=== PATIENT | male | born 1980 | race Two or more races ===

== ENCOUNTER 2022-05-09 17:54 | Inpatient (IN) | payer MEDICAID, OTHER ==
[~2022-05-09] VITALS: Ht 182.9 cm; Wt 87.1 kg
[2022-05-09] MEDS ORDERED: SODIUM CHLORIDE 0.9% 1,000 ML IV ONE ×2 (18:45→23:45)
[2022-05-09 19:24] LABS: EOSINOPHILS % 2.8 % (0.0-5.0); HEMATOCRIT. 38.8 % (42.0-52.0); HEMOGLOBIN. 13.4 g/dL (14.0-18.0); LYMPHOCYTES % 22.5 % (20.0-50.0); MEAN CORPUSCULAR HEMOGLOBIN 29.5 pg (28.0-32.0); MEAN CORPUSCULAR VOLUME 85.8 fL (80.0-94.0); MEAN PLATELET VOLUME 9.5 fl (7.4-10.4); MONOCYTES % 14.9 % (2.0-8.0); NEUTROPHILS % 58.8 % (40.0-76.0); PLATELET 221 x1000/uL (130-400); RED BLOOD CELL COUNT 4.53 mill/uL (4.7-6.1); RED CELL DISTRIBUTION WIDTH 14.6 % (11.6-14.6)
[2022-05-09 19:28] LABS: CHLORIDE 104 mEq/L (98-107)
[2022-05-09 19:30] LABS: PROTHROMBIN TIME 10.9 sec (9.6-11.0)
[2022-05-09 19:48] LABS: CREATINE KINASE 1480 IU/L (39-308); ETHANOL BLOOD < 10 mg/dL
[2022-05-10] MEDS ORDERED: MAGNESIUM/ALUMINUM HYDROXIDE/SIMETHICONE 30ML UDC PO PRN (01:30)
[2022-05-10] MEDS ORDERED: ACETAMINOPHEN 325MG TABLET PO PRN (01:30)
[2022-05-10] MEDS ORDERED: CLONIDINE 0.1MG TABLET PO PRN (01:30)
[2022-05-10] MEDS ORDERED: ZOLPIDEM TARTRATE 5MG TABLET PO PRN ×2 (01:30→15:45)
[2022-05-10] MEDS ORDERED: ONDANSETRON HCL 4MG/2ML INJ IV PRN (01:30)
[2022-05-10] MEDS ORDERED: DIPHENHYDRAMINE 50MG/ML VIAL IV PRN (01:30)
[2022-05-10] MEDS ORDERED: POTASSIUM CHLORIDE 20MEQ TABLET SR PO NR (01:30)
[2022-05-10] MEDS: SODIUM CHLORIDE 0.9% 1,000 ML IV SCH ×3 (02:24→21:30)
[2022-05-10 02:36] LABS: CLARITY URINE CLEAR (CLEAR); COLOR URINE DARK YELLOW (YELLOW); KETONES URINE TRACE (NEGATIVE); LEUKOCYTE ESTERASE URINE NEGATIVE (NEGATIVE); NITRITE URINE NEGATIVE (NEGATIVE); OCCULT BLOOD URINE NEGATIVE (NEGATIVE); PH URINE 5.5 (4.5-8.0); PROTEIN URINE 1+ (NEGATIVE); SPECIFIC GRAVITY URINE 1.035 (1.005-1.030)
[2022-05-10 02:55] LABS: *AMPHETAMINES SCREEN URINE PRESUMTIVE POSITIVE (NEGATIVE); *BARBITURATES SCREEN URINE NEGATIVE (NEGATIVE); *BENZODIAZEPINES SCREEN URINE NEGATIVE (NEGATIVE); *COCAINE SCREEN URINE NEGATIVE (NEGATIVE); CANNABINOID URINE SCREEN NEGATIVE (NEGATIVE); METHADONE URINE SCREEN NEGATIVE (NEGATIVE); OPIATES URINE SCREEN NEGATIVE (NEGATIVE); PHENCYCLIDINE URINE SCREEN NEGATIVE (NEGATIVE)
[2022-05-10] MEDS: NICOTINE 7MG PATCH TD SCH (13:35)
[2022-05-10] MEDS ORDERED: MAGNESIUM 1 G PREMIX 100 ML IV NR (16:30)
[2022-05-10 20:00] VITALS: BP 117/62
[2022-05-10] MEDS: ACETAMINOPHEN 325MG TABLET PO PRN ×2 (20:48→21:16)
[2022-05-10] MEDS: LORAZEPAM 2MG/ML CPJ IV PRN (20:48)
[2022-05-10] MEDS: GABAPENTIN 400MG CAPSULE PO SCH (21:16)
[2022-05-11] VITALS: BP 115/62
[2022-05-11 04:00] VITALS: BP 113/65
[2022-05-11] MEDS: GABAPENTIN 400MG CAPSULE PO SCH ×2 (06:00→15:13)
[2022-05-11 07:43] LABS: CREATINE KINASE 403 IU/L (39-308)
[2022-05-11] MEDS: NICOTINE 7MG PATCH TD SCH (08:53)
[2022-05-11] MEDS: ACETAMINOPHEN 325MG TABLET PO PRN ×2 (09:03→15:13)
[2022-05-11] MEDS: LORAZEPAM 2MG/ML CPJ IV PRN ×2 (09:04→15:14)
[2022-05-11 09:10] LABS: ABSOLUTE EOSINOPHILS 0.1 x10E3/uL (0.0-0.4); ABSOLUTE LYMPHOCYTES 0.9 x10E3/uL (0.7-3.1); ABSOLUTE MONOCYTES 0.5 x10E3/uL (0.1-0.9); ABSOLUTE NEUTROPHILS 2.4 x10E3/uL (1.4-7.0); BASOPHILS 1 % (Not Estab.); HEMATOCRIT 36.2 % (37.5-51.0); HEMOGLOBIN 12.1 g/dL (13.0-17.7); IMMATURE GRANULOCYTES 0 % (Not Estab.); LYMPHOCYTES 23 % (Not Estab.); MEAN CORPUSCULAR HEMOGLOBIN 29.9 pg (26.6-33.0); MEAN CORPUSCULAR HGB CONC. 33.4 g/dL (31.5-35.7); MEAN CORPUSCULAR VOLUME 89 fL (79-97); MONOCYTES 13 % (Not Estab.); NEUTROPHILS 60 % (Not Estab.); PLATELETS 196 x10E3/uL (150-450); RBC 4.05 x10E6/uL (4.14-5.80); RED CELL DISTRIBUTION WIDTH 14.1 % (11.6-15.4); WBC 3.9 x10E3/uL (3.4-10.8)
[2022-05-11 10:11] LABS: % CD 3 POS. LYMPHOCYTES 66.7 % (57.5-86.2); % CD 4 POS. LYMPHOCYTES 14.5 % (30.8-58.5); % CD 8 POS. LYMPH 48.7 % (12.0-35.5); ABSOLUTE CD 3 600 /uL (622-2402); ABSOLUTE CD 4 HELPER 131 /uL (359-1519); ABSOLUTE CD 8 SUPPRESSOR 438 /uL (109-897)
[2022-05-11 15:43] VITALS: BP 111/71
[2022-05-11 15:46] VITALS: BP 111/71
[2022-05-11 19:12] VITALS: BP 123/79
== END 2022-05-11 19:25 | disposition home or self-care (01) | DRG 892 ==
LOC: ER 17:54 → MICUSO 05-10 04:09 → 6EST 05-10 04:20
PROVIDERS: ADMIT Internal Medicine; ATTEND Internal Medicine
DX: G92.8 Other toxic encephalopathy (principal); B20 Human immunodeficiency virus [HIV] disease; M62.82 Rhabdomyolysis; E87.6 Hypokalemia; F15.10 Other stimulant abuse, uncomplicated; Z59.00 Homelessness unspecified; Z72.0 Tobacco use; Z79.899 Other long term (current) drug therapy; Z85.820 Personal history of malignant melanoma of skin; Z88.0 Allergy status to penicillin; Z87.01 Personal history of pneumonia (recurrent)
CPT/HCPCS: 36415; 71045; 80051; 80053; 80305; 80307; 80320; 80329; 81003; 82550; 83735; 84443; 84484; 85025; 86359; 86360; 93005; 99285; J2060; J3475; J7030; G0480

== ENCOUNTER 2022-12-18 15:26 | Emergency (ER) | payer MEDICAID, OTHER ==
[~2022-12-18] VITALS: Ht 182.9 cm; Wt 80.0 kg
[2022-12-18 16:32] LABS: BASOPHILS % 0.9 % (0.0-2.0); EOSINOPHILS % 2.5 % (0.0-5.0); HEMOGLOBIN. 12.6 g/dL (14.0-18.0); LYMPHOCYTES % 18.4 % (20.0-50.0); MEAN CORPUSCULAR VOLUME 85.6 fL (80.0-94.0); MEAN PLATELET VOLUME 9.7 fl (7.4-10.4); MONOCYTES % 14.5 % (2.0-8.0); NEUTROPHILS % 63.7 % (40.0-76.0); PLATELET 181 x1000/uL (130-400); RED BLOOD CELL COUNT 4.21 mill/uL (4.7-6.1); RED CELL DISTRIBUTION WIDTH 14.1 % (11.6-14.6)
[2022-12-18 16:33] LABS: INR 0.9; PROTHROMBIN TIME 10.1 sec (9.6-11.0)
[2022-12-18 16:43] LABS: CHLORIDE 108 mEq/L (98-107)
[2022-12-18] MEDS ORDERED: KETOROLAC 30MG/ML VIAL IM ONE (19:15)
[2022-12-18 20:00] VITALS: BP 132/87
[2022-12-18 20:56] LABS: CLARITY URINE CLEAR (CLEAR); COLOR URINE YELLOW (YELLOW); KETONES URINE NEGATIVE (NEGATIVE); LEUKOCYTE ESTERASE URINE NEGATIVE (NEGATIVE); NITRITE URINE NEGATIVE (NEGATIVE); OCCULT BLOOD URINE NEGATIVE (NEGATIVE); PROTEIN URINE NEGATIVE (NEGATIVE); SPECIFIC GRAVITY URINE 1.016 (1.005-1.030)
== END 2022-12-18 20:32 | disposition home or self-care (01) ==
LOC: ER 15:26
DX: R51.9 Headache, unspecified (principal); R21 Rash and other nonspecific skin eruption; F19.90 Other psychoactive substance use, unspecified, uncomplicated; Z88.0 Allergy status to penicillin
CPT/HCPCS: 36415; 70450; 80053; 81003; 83690; 84484; 85025; 85610; 96372; 99285; J1885

== ENCOUNTER 2023-02-02 04:58 | Emergency (ER) | payer MEDICAID, OTHER ==
[~2023-02-02] VITALS: Ht 180.3 cm; Wt 78.0 kg
[2023-02-02 05:04] VITALS: O2SAT 96
[2023-02-02] MEDS ORDERED: ACETAMINOPHEN 325MG TABLET PO ONE (05:45)
[2023-02-02] MEDS ORDERED: DIPHENHYDRAMINE 50MG/ML VIAL IV NR (05:45)
[2023-02-02] MEDS ORDERED: FAMOTIDINE 20MG/2ML VIAL IV NR (05:45)
[2023-02-02] MEDS ORDERED: SODIUM CHLORIDE 0.9% 1,000 ML IV ONE (05:45)
[2023-02-02 06:12] LABS: CHLORIDE 112 mEq/L (98-107)
[2023-02-02 06:16] LABS: HEMATOCRIT. 35.3 % (42.0-52.0); HEMOGLOBIN. 12.1 g/dL (14.0-18.0); MEAN CORPUSCULAR HEMOGLOBIN 29.3 pg (28.0-32.0); MEAN CORPUSCULAR VOLUME 85.4 fL (80.0-94.0); MEAN PLATELET VOLUME 9.9 fl (7.4-10.4); PLATELET 159 x1000/uL (130-400); RED BLOOD CELL COUNT 4.13 mill/uL (4.7-6.1); RED CELL DISTRIBUTION WIDTH 14.3 % (11.6-14.6)
[2023-02-02 06:19] LABS: CREATINE KINASE 890 IU/L (39-308)
[2023-02-02 07:07] LABS: PLATELET ESTIMATE NORMAL
[2023-02-02] MEDS ORDERED: DOXYCYCLINE HYCLATE 100MG CAPSULE PO ONE (07:30)
[2023-02-02] MEDS ORDERED: PREDNISONE 20MG TABLET PO ONE (07:30)
[2023-02-02] MEDS ORDERED: PRED5TAB48 MT (07:31)
[2023-02-02] MEDS ORDERED: DOXY100T28 MT (07:31)
[2023-02-02] MEDS ORDERED: ACET-2708 MT (07:31)
[2023-02-02 09:00] VITALS: BP 135/62; PULSE 92; RESP 18; TEMP 98.2
== END 2023-02-02 09:38 | disposition home or self-care (01) ==
LOC: ER 04:58
DX: L21.9 Seborrheic dermatitis, unspecified (principal); F17.200 Nicotine dependence, unspecified, uncomplicated; F12.10 Cannabis abuse, uncomplicated; F15.10 Other stimulant abuse, uncomplicated; F19.90 Other psychoactive substance use, unspecified, uncomplicated; Z00.00 Encounter for general adult medical examination without abnormal findings; Z91.148 Patient's other noncompliance with medication regimen for other reason; Z88.0 Allergy status to penicillin; Z98.890 Other specified postprocedural states; Z86.59 Personal history of other mental and behavioral disorders
CPT/HCPCS: 80053; 82550; 85025; 36415; 96361; 96374; 96375; 99284; J7512; J1200; J3490; J7030; Z7610 ×2

== ENCOUNTER 2023-08-28 15:42 | Emergency (ER) | payer MEDICAID, OTHER ==
[~2023-08-28] VITALS: Ht 175.3 cm; Wt 103.0 kg
[~2023-08-28 15:42] MED LIST: ACET-2708 MT; DOXY100T28 MT; PRED5TAB48 MT
[2023-08-28 15:48] VITALS: O2SAT 98
[2023-08-28] MEDS ORDERED: KETOROLAC 30MG/ML VIAL IV STA (15:53)
[2023-08-28] MEDS ORDERED: CEFTRIAXONE 1GM PREMIX 50 ML IV ONE (16:00)
[2023-08-28] MEDS ORDERED: SODIUM CHLORIDE 0.9% 1,000 ML IV ONE (16:00)
[2023-08-28 16:38] LABS: BASOPHILS % 0.2 % (0.0-2.0); EOSINOPHILS % 0.7 % (0.0-5.0); HEMATOCRIT. 32.5 % (42.0-52.0); MEAN CORPUSCULAR HEMOGLOBIN 27.8 pg (28.0-32.0); MEAN CORPUSCULAR VOLUME 81.7 fL (80.0-94.0); MEAN PLATELET VOLUME 8.1 fl (7.4-10.4); MONOCYTES % 7.8 % (2.0-8.0); NEUTROPHILS % 83.3 % (40.0-76.0); PLATELET 268 x1000/uL (130-400); RED BLOOD CELL COUNT 3.97 mill/uL (4.7-6.1); RED CELL DISTRIBUTION WIDTH 14.4 % (11.6-14.6); WHITE BLOOD COUNT 7.9 x1000/uL (4.5-11.0)
[2023-08-28 16:49] LABS: PROTHROMBIN TIME 10.8 sec (9.6-11.0)
[2023-08-28 16:56] LABS: ALANINE AMINOTRANSFERASE 17 IU/L (10-49); ALBUMIN 3.1 g/dL (3.2-4.8); ASPARTATE AMINOTRANSFERASE 21 IU/L (<34); BILIRUBIN TOTAL 0.3 mg/dL (0.1-1.0); CALCIUM 8.4 mg/dL (8.7-10.4); CARBON DIOXIDE 26 mEq/L (21-32); CHLORIDE 105 mEq/L (98-107); CREATINE KINASE 64 IU/L (46-171); CREATININE 0.8 mg/dL (0.6-1.3); GLUCOSE 81 mg/dL (70-105); POTASSIUM 4.1 mEq/L (3.5-5.1); PROTEIN TOTAL 9.2 g/dL (6.0-8.3); SODIUM 135 mEq/L (136-145); UREA NITROGEN BLOOD 19 mg/dL (9-23)
[2023-08-28 17:10] LABS: ETHANOL BLOOD < 10 mg/dL (<10); TROPONIN I HIGH SENSITIVITY < 4 ng/L (3.0-53)
[2023-08-28] MEDS ORDERED: NICOTINE 14MG PATCH TD ONE (19:15)
[2023-08-28 19:26] VITALS: TEMP 99.1
[2023-08-29 01:22] VITALS: BP 106/59; PULSE 125; RESP 18
== END 2023-08-29 01:49 | disposition admitted as inpatient to this hospital (09) ==
LOC: ER 15:42 → CANBEDREQ 08-29 16:43
DX: R53.1 Weakness (principal); E86.0 Dehydration; F12.90 Cannabis use, unspecified, uncomplicated; F15.90 Other stimulant use, unspecified, uncomplicated; N18.9 Chronic kidney disease, unspecified; Z88.0 Allergy status to penicillin; Z20.822 Contact with and (suspected) exposure to COVID-19
CPT/HCPCS: 80053; 80320; 82550; 83880; 83605; 83690; 85025; 85610; 86850; 86900; 86901; 87040; 84484; 87804 ×2; 36415; 84145; 71045; 70450; 93005; 96365; 96366; 99285; 99406; 87426; J0696; J1885; J7030; Z7610 ×4; G0480